=== PATIENT | male | born 1990 | race Caucasian/White ===

== ENCOUNTER 2017-10-31 22:47 | Emergency (ER) | payer OTHER ==
[2017-10-31 23:25] VITALS: BP 134/84
--- NOTE | 2017-11-01 00:04 | EDM.PDOC ---
ED HPI GENERAL MEDICAL PROBLEM - General Chief Complaint: General Stated Complaint: PRESSURE ON HEAD AND CHECK Time Seen by Provider: 10/31/17 23:40 Source of Information: Reports: Patient, Family History Limitations: Reports: No Limitations - History of Present Illness INITIAL COMMENTS - FREE TEXT/NARRATIVE: Andi comes into [facility] ED with sxs of numbness i e paresthesias affecting his R leg, torso, and R face this evening, 3 episodes lasting < 10 minutes.There was a bitemproal headache that preceded sxs that was aching, without visual or auditory changes. There was no loss of coordination, weakness, or impairment in concentration. He is currently asx. His general health is good, takes a MDI for asthma, last check up over a year ago by PCP. - Related Data Allergies Allergy/AdvReac Type Severity Reaction Status Date / Time Penicillins Allergy Hives Verified 06/09/14 23:01 Home Meds: Home Meds NK [No Known Home Meds] 06/09/14 [History] Past Medical History - Past Health History Medical/Surgical History: Denies Medical/Surgical History Respiratory History: Reports: Asthma ED ROS GENERAL - Review of Systems Review Of Systems: See Below Constitutional: Reports: No Symptoms HEENT: Reports: No Symptoms Respiratory: Reports: No Symptoms Cardiovascular: Reports: No Symptoms Endocrine: Reports: No Symptoms GI/Abdominal: Reports: No Symptoms : Reports: No Symptoms Musculoskeletal: Reports: No Symptoms Skin: Reports: No Symptoms Neurological: Reports: Headache, Paresthesia Psychiatric: Reports: No Symptoms Hematologic/Lymphatic: Reports: No Symptoms Immunologic: Reports: No Symptoms ED EXAM, GENERAL - Physical Exam Exam: See Below Exam Limited By: No Limitations General Appearance: Alert, WD/WN, No Apparent Distress, Obese Eye Exam: Bilateral Eye: EOMI, Normal Inspection, PERRL Ears: Normal External Exam, Normal TMs Nose: Normal Inspection Throat/Mouth: Normal Inspection, Normal Oropharynx Head: Normocephalic Neck: Normal Inspection, Supple Respiratory/Chest: No Respiratory Distress, Lungs Clear, Normal Breath Sounds, No Accessory Muscle Use, Chest Non-Tender Cardiovascular: Regular Rate, Rhythm, No Murmur GI/Abdominal: Normal Bowel Sounds, Soft, Non-Tender, No Organomegaly, No Distention, No Mass (Male) Exam: Deferred Rectal (Males) Exam: Deferred Back Exam: Normal Inspection Extremities: Normal Inspection Neurological: Alert, Oriented, CN II-XII Intact, Normal Cognition, Normal Gait, Normal Reflexes, No Motor/Sensory Deficits, Other (Rhomberg negative) Psychiatric: Normal Affect, Normal Mood Skin Exam: Warm, Dry, Intact, Normal Color, No Rash Lymphatic: No Adenopathy Course - Vital Signs Text/Narrative:: Andi remained stable at the [facility] ED. No neurologic findings were identified. Last Recorded V/S: Last Vital Signs Temp 36.8 C 10/31/17 23:00 Pulse 99 10/31/17 23:14 Resp 18 10/31/17 23:14 BP 134/84 10/31/17 23:14 Pulse Ox 95 10/31/17 23:14 Departure - Departure Time of Disposition: 23:55 Disposition: Home, Self-Care 01 Condition: Good Clinical Impression: Paresthesias - Discharge Information Referrals: Shawn Spears MD [Primary Care Provider] - - Problem List & Annotations (1) Paresthesias SNOMED Code(s): 38401792 Code(s): R20.2 - PARESTHESIA OF SKIN Status: Acute Current Visit: Yes Annotation/Comment:: I suggested observation, and consider a check up with PCP. - Problem List Review Problem List Initiated/Reviewed/Updated: Yes - Assessment/Plan Plan: Follow up with PCP.
== END 2017-11-01 00:02 | disposition home or self-care (01) ==
LOC: FB.ED 22:47
DX: R20.2 Paresthesia of skin (principal); Z88.0 Allergy status to penicillin
CPT/HCPCS: 99282

== ENCOUNTER 2024-09-05 10:15 | Emergency (ER) | payer SELFPAY ==
[2024-09-05 13:15] VITALS: BP 123/87; PULSE 68
== END 2024-09-05 13:58 | disposition left against medical advice (07) ==
LOC: FB.ED 10:15
DX: Z53.21 Procedure and treatment not carried out due to patient leaving prior to being seen by health care provider (principal)

== ENCOUNTER 2024-09-05 20:44 | Emergency (ER) | payer SELFPAY ==
[2024-09-06 01:00] VITALS: BP 136/72; PULSE 112
== END 2024-09-05 22:00 | disposition home or self-care (01) ==
LOC: FB.ED 20:44
DX: U07.1 COVID-19 (principal); J45.909 Unspecified asthma, uncomplicated; Z88.0 Allergy status to penicillin
CPT/HCPCS: 99283

== ENCOUNTER 2025-04-14 10:48 | Emergency (ER) | payer SELFPAY ==
[2025-04-14 11:15] VITALS: BP 128/82; PULSE 60
== END 2025-04-14 11:25 | disposition home or self-care (01) ==
LOC: FB.ED 10:48
DX: S41.112A Laceration without foreign body of left upper arm, initial encounter (principal); J45.909 Unspecified asthma, uncomplicated; Z86.16 Personal history of COVID-19; W22.8XXA Striking against or struck by other objects, initial encounter
CPT/HCPCS: 12001; 99282